=== PATIENT | male | born 1990 | race Caucasian/White ===

== ENCOUNTER 2024-02-22 10:23 | Emergency (ER) | payer OTHER ==
[2024-02-22 10:31] VITALS: BP 148/73; PULSE 79; RESP 20; TEMP 98.1; BMI 27.0
== END 2024-02-22 11:10 | disposition home or self-care (01) ==
LOC: JERFT 10:23
PROC: 0HQFXZZ Repair Right Hand Skin, External Approach (ICD-10-PCS; principal; 2024-02-22)
DX: S61.210A Laceration without foreign body of right index finger without damage to nail, initial encounter (principal); W26.8XXA Contact with other sharp object(s), not elsewhere classified, initial encounter
CPT/HCPCS: 99283-25